=== PATIENT | female | born 1975 | race African-American/Black ===

== ENCOUNTER 2017-07-27 10:02 | Emergency (ER) | payer BC ==
--- NOTE | 2017-07-27 10:45 | EDM.PDOC ---
ED HPI GENERAL MEDICAL PROBLEM - General Chief Complaint: FAMILY REUNIFICATION SPECIALIST Problem Stated Complaint: ABD PAIN (4WKS ) Time Seen by Provider: 07/27/17 10:43 Source of Information: Reports: Patient History Limitations: Reports: No Limitations - History of Present Illness INITIAL COMMENTS - FREE TEXT/NARRATIVE: History of present illness: [41-year-old female comes in complaining of vaginal bleeding. Patient indicates that she has been notified that she is and those records were sent to her FAMILY REUNIFICATION SPECIALIST in [place]. Patient indicates that in September she had had a miscarriage and that she does desire to be and has been taking medication to facilitate this. Patient indicates that she is taking metformin but doesn't quite understand how this fits into fertility but was informed that that would help with her fertility. This would be more consistent with insulin resistance/ PCOS.] Review of systems: As per history of present illness and below otherwise all systems reviewed and negative. Past medical history: As per history of present illness and as reviewed below otherwise noncontributory. Surgical history: As per history of present illness and as reviewed below otherwise noncontributory. Social history: No reported history of drug or alcohol abuse. Family history: As per history of present illness and as reviewed below otherwise noncontributory. Physical exam: HEENT: Atraumatic, normocephalic, pupils reactive, negative for conjunctival pallor or scleral icterus, mucous membranes moist, throat clear, neck supple, nontender, trachea midline. Lungs: Clear to auscultation, breath sounds equal bilaterally, chest nontender. Heart: S1S2, regular, negative for clicks, rubs, or JVD. Abdomen: Soft, nondistended, nontender. Negative for masses or hepatosplenomegaly. Negative for costovertebral tenderness. Pelvis: Stable nontender. Genitourinary: Deferred. Rectal: Deferred. Extremities: Atraumatic, negative for cords or calf pain. Neurovascular unremarkable. Neuro: Awake, alert, oriented. Cranial nerves II through XII unremarkable. Cerebellum unremarkable. Motor and sensory unremarkable throughout. Exam nonfocal. Global assessment is benign save subjective complaint as noted in history of present illness Discussed with patient the possibilities of a that is too early to determine the ultrasound as opposed to a possible tubal and/or a spontaneous . Patient verbalized understanding of need to do serial hCG levels and will go home where she has relationship with her teletypesetter monitor to do this. Diagnostics: [CBC, CMP, UA, serum hCG quantitative, transvaginal ultrasound] Therapeutics: [] Impression: [Early IUP versus tubal versus spontaneous AB] Plan: [Follow-up in 48 hours for serial hCG levels and further monitoring] Definitive disposition and diagnosis as appropriate pending reevaluation and review of above. - Related Data Allergies Allergy/AdvReac Type Severity Reaction Status Date / Time No Known Allergies Allergy Verified 07/27/17 10:27 Home Meds: Home Meds Diltiazem HCl [Diltiazem ER] 60 mg PO DAILY 07/27/17 [History] Vits #93/Iron Fum/FA [ Formula Tablet] 1 each PO 07/27/17 [ History] metFORMIN HCl [Metformin HCl ER] 500 mg PO DAILY 07/27/17 [History] ED ROS GENERAL - Review of Systems Review Of Systems: See Below (See history of present illness) ED EXAM, GENERAL - Physical Exam Exam: See Below (See history of present illness) Course - Vital Signs Last Recorded V/S: Last Vital Signs Temp 36.5 C 07/27/17 10:21 Pulse 69 07/27/17 10:21 Resp 16 07/27/17 10:21 BP 162/94 H 07/27/17 10:21 Pulse Ox 100 07/27/17 10:21 - Orders/Labs/Meds Orders: Active Orders 24 hr Category Date Time Status OB 1st Tri Sgl 1st Gest [US] Stat Exams 07/27/17 10:42 Taken CULTURE URINE [] Stat Lab 07/27/17 10:15 Received Labs: Laboratory Tests 07/27/17 07/27/17 07/27/17 Range/Units 10:15 10:48 10:48 WBC 6.69 (4.0-11.0) K/uL RBC 4.84 (4.30-5.90) M/uL Hgb 13.0 (12.0-16.0) g/dL Hct 39.9 (36.0-46.0) % MCV 82.4 (80.0-98.0) fL MCH 26.9 L (27.0-32.0) pg MCHC 32.6 (31.0-37.0) g/dL RDW Std Deviation 45.5 (28.0-62.0) fl RDW Coeff of Romy 15 (11.0-15.0) % Plt Count 226 (150-400) K/uL MPV 11.10 (7.40-12.00) fL Neut % (Auto) 45.6 L (48.0-80.0) % Lymph % (Auto) 40.8 H (16.0-40.0) % Hill % (Auto) 10.5 (0.0-15.0) % Eos % (Auto) 2.7 (0.0-7.0) % Baso % (Auto) 0.4 (0.0-1.5) % Neut # (Auto) 3.1 (1.4-5.7) K/uL Lymph # (Auto) 2.7 H (0.6-2.4) K/uL Hill # (Auto) 0.7 (0.0-0.8) K/uL Eos # (Auto) 0.2 (0.0-0.7) K/uL Baso # (Auto) 0.0 (0.0-0.1) K/uL Nucleated RBC % 0.0 /100WBC Nucleated RBCs # 0 K/uL HCG, Quant 1319.2 mIU/mL Urine Color YELLOW Urine Appearance SLT CLOUDY Urine pH 6.0 (5.0-8.0) Ur Specific [place] 1.020 (1.001-1.035) Urine Protein NEGATIVE (NEGATIVE) mg/dL Urine Glucose (UA) NEGATIVE (NEGATIVE) mg/dL Urine Ketones NEGATIVE (NEGATIVE) mg/dL Urine Occult Blood LARGE H (NEGATIVE) Urine Nitrite NEGATIVE (NEGATIVE) Urine Bilirubin NEGATIVE (NEGATIVE) Urine Urobilinogen 0.2 (<2.0) EU/dL Ur Leukocyte Esterase NEGATIVE (NEGATIVE) Urine RBC 45-50 (0-2/HPF) Urine WBC 1-3 (0-5/HPF) Ur Epithelial Cells OCCASIONAL (NONE-FEW) Urine Bacteria RARE (NEGATIVE) Blood Type 07/27/17 Range/Units 10:48 WBC (4.0-11.0) K/uL RBC (4.30-5.90) M/uL Hgb (12.0-16.0) g/dL Hct (36.0-46.0) % MCV (80.0-98.0) fL MCH (27.0-32.0) pg MCHC (31.0-37.0) g/dL RDW Std Deviation (28.0-62.0) fl RDW Coeff of Romy (11.0-15.0) % Plt Count (150-400) K/uL MPV (7.40-12.00) fL Neut % (Auto) (48.0-80.0) % Lymph % (Auto) (16.0-40.0) % Hill % (Auto) (0.0-15.0) % Eos % (Auto) (0.0-7.0) % Baso % (Auto) (0.0-1.5) % Neut # (Auto) (1.4-5.7) K/uL Lymph # (Auto) (0.6-2.4) K/uL Hill # (Auto) (0.0-0.8) K/uL Eos # (Auto) (0.0-0.7) K/uL Baso # (Auto) (0.0-0.1) K/uL Nucleated RBC % /100WBC Nucleated RBCs # K/uL HCG, Quant mIU/mL Urine Color Urine Appearance Urine pH (5.0-8.0) Ur Specific [place] (1.001-1.035) Urine Protein (NEGATIVE) mg/dL Urine Glucose (UA) (NEGATIVE) mg/dL Urine Ketones (NEGATIVE) mg/dL Urine Occult Blood (NEGATIVE) Urine Nitrite (NEGATIVE) Urine Bilirubin (NEGATIVE) Urine Urobilinogen (<2.0) EU/dL Ur Leukocyte Esterase (NEGATIVE) Urine RBC (0-2/HPF) Urine WBC (0-5/HPF) Ur Epithelial Cells (NONE-FEW) Urine Bacteria (NEGATIVE) Blood Type A POSITIVE Departure - Departure Time of Disposition: 12:26 Disposition: Home, Self-Care 01 Condition: Good Clinical Impression: Threatened - Discharge Information Referrals: PCP,None [Primary Care Provider] - Forms: ED Department Discharge Additional Instructions: The following information is given to patients seen in the emergency department who are being discharged to home. This information is to outline your options for follow-up care. We provide all patients seen in our emergency department with a follow-up referral. The need for follow-up, as well as the timing and circumstances, are variable depending upon the specifics of your emergency department visit. If you don't have a primary care physician on staff, we will provide you with a referral. We always advise you to contact your personal physician following an emergency department visit to inform them of the circumstance of the visit and for follow-up with them and/or the need for any referrals to a consulting specialist. The emergency department will also refer you to a specialist when appropriate. This referral assures that you have the opportunity for follow-up care with a specialist. All of these measure are taken in an effort to provide you with optimal care, which includes your follow-up. Under all circumstances we always encourage you to contact your private physician who remains a resource for coordinating your care. When calling for follow-up care, please make the office aware that this follow-up is from your recent emergency room visit. If for any reason you are refused follow-up, please contact the [facility] Emergency Department at and asked to speak to the emergency department charge nurse. It is important follow-up with a physician Preferably FAMILY REUNIFICATION SPECIALIST to evaluate your hCG levels perform further diagnostic testing to differentiate between an early IUP versus a tubal versus a spontaneous Follow-up in 48 hours no later than Monday - My Orders Last 24 Hours: My Active Orders 07/27/17 10:15 CULTURE URINE [RM] Stat 07/27/17 10:42 OB 1st Tri Sgl 1st Gest [US] Stat - Assessment/Plan Last 24 Hours: My Active Orders 07/27/17 10:15 CULTURE URINE [RM] Stat 07/27/17 10:42 OB 1st Tri Sgl 1st Gest [US] Stat
--- NOTE | 2017-07-27 15:47 | US ---
EXAM DATE: 07/27/17 PATIENT'S AGE: 41 Patient: YESY WALSH Facility: [place], [place] Site . Site : [id number] Study: OB Pelvis [id number]/[id number] 11:27:05 AM Ordering Physician: Doctor Stoddard Final Report: INDICATION: . Bleeding. FINDINGS: An endovaginal pelvic ultrasound shows a uterus of normal size, contour, echogenicity. No fluid collection identified in the endometrial canal. The endometrial stripe is mildly heterogeneous and measures 1.1 cm in thickness. Normal sonographic appearance of the ovaries with the right ovary measuring 3.6 x 2.5 x 2.5 cm and the left ovary measuring 3.0 x 2.5 x 1.8 cm. Color and spectral Doppler analysis shows normal arterial and venous blood flow to both ovaries. Trace free fluid in the pelvis. IMPRESSION: No intra or extra uterine identified. An ectopic cannot be excluded based on this study. Recommend continued close interval sonographic and laboratory followup. Dictated by Asim Monae MD @ 07/27/2017 12:03:50 PM Dictated by: Asim Monae MD @ 07/27/2017 12:03:59 (Electronic Signature) Report Signed by Proxy. NATALIE
== END 2017-07-27 12:48 | disposition home or self-care (01) ==
LOC: MW.ED 10:02
DX: O20.0 Threatened abortion (principal); Z79.84 Long term (current) use of oral hypoglycemic drugs; Z79.899 Other long term (current) drug therapy; Z3A.01 Less than 8 weeks gestation of pregnancy
CPT/HCPCS: 36415; 76801; 76801-26; 81001; 84702; 85025; 86900; 86901; 87086; 99284; 99284-25